=== PATIENT | male | born 1945 | race Two or more races ===

== ENCOUNTER 2019-07-16 09:48 | Day surgery (SDC) | payer OTHER ==
[~2019-07-16] VITALS: Ht 170.2 cm; Wt 74.8 kg
[~2019-07-16 09:48] MED LIST: ASPI-404 PO; FINA5TAB4 PO; FURO20TA3 PO; POTA8TAB2 PO; TAMS0.4C36 PO; TERA5CAP42 PO; [UNRECOGNIZED DRUG - OTHER]
[2019-07-16] MEDS ORDERED: IODIXANOL 320MG/ML 100ML BTL IV ONE ×2 (11:47→11:56)
[2019-07-16] MEDS ORDERED: LIDOCAINE 2%HCL (LOCAL ANESTH.) INJ 20ML MDV ONE (11:47)
[2019-07-16] MEDS ORDERED: VERAPAMIL 2.5MG/ML INJ 2ML VIAL IV ONE (11:56)
[2019-07-16] MEDS ORDERED: ANGIOMAX 250 MG VIAL IV ONE (11:56)
[2019-07-16] MEDS ORDERED: fentaNYL CITRATE 100 MCG/2 ML VL ONE (11:56)
[2019-07-16] MEDS ORDERED: SODIUM CHL 0.9% 0 ML ONE (11:56)
[2019-07-16] MEDS ORDERED: MIDAZOLAM HCL 1MG/1ML-2 ML VIAL ONE (11:56)
[2019-07-16] MEDS ORDERED: HEPARIN SODIUM (PORCINE) 5000 UNITS/ML 1ML VIAL ONE (12:33)
== END 2019-07-16 14:40 | disposition home or self-care (01) ==
LOC: CATH 09:48
PROVIDERS: ATTEND Internal Medicine
DX: I25.10 Atherosclerotic heart disease of native coronary artery without angina pectoris (principal); N40.0 Benign prostatic hyperplasia without lower urinary tract symptoms; I95.9 Hypotension, unspecified; M19.90 Unspecified osteoarthritis, unspecified site; Z79.82 Long term (current) use of aspirin; Z79.899 Other long term (current) drug therapy
CPT/HCPCS: 93005; 93458; C1894; J1644; J2250; J3010; J7030; Q9967; 99152